=== PATIENT | male | born 1970 | race Two or more races ===

== ENCOUNTER 2021-05-28 20:06 | Emergency (ER) | payer MEDICAID, OTHER ==
[~2021-05-28] VITALS: Ht 185.4 cm; Wt 127.0 kg
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
--- NOTE | 2021-05-28 20:36 | NUR ---
POC BS 555; SAHIL CASTANO AWARE
--- NOTE | 2021-05-28 20:47 | NUR ---
INCLUSION SPECIAL EDUCATION TEACHER AT PT'S BEDSIDE
[2021-05-28 21:03] LABS: BASOPHILS % (AUTO) 0.3 % (0.0-2.0); EOSINOPHILS % (AUTO) 1.9 % (0.0-6.0); HEMATOCRIT 46 % (39-51); HEMOGLOBIN 15.8 g/dL (13.5-17.5); LYMPHOCYTES # (AUTO) 1.6 K/uL (0.8-4.8); LYMPHOCYTES % (AUTO) 18.3 % (20.0-44.0); MEAN CORPUSCULAR HGB CONC 35 g/dl (31.0-36.0); MEAN CORPUSCULAR VOLUME 93 fL (80-96); MONOCYTES # (AUTO) 0.8 K/uL (0.1-1.30); MONOCYTES % (AUTO) 9.2 % (2.0-12.0); NEUTROPHILS # (AUTO) 6.2 K/uL (1.8-8.9); NEUTROPHILS % (AUTO) 70.3 % (43.0-81.0); PLATELET COUNT (AUTO) 173 K/uL (150-450); RED BLOOD CELL COUNT(AUTO) 4.92 MIL/uL (4.5-6.0); WHITE BLOOD COUNT (AUTO) 8.8 K/uL (4.3-11.0)
--- NOTE | 2021-05-28 21:44 | NUR ---
PT TAKEN TO CT VIA MYES[facility]
[2021-05-28 21:59] LABS: ALANINE AMINOTRANSFERASE 43 U/L (12-78); ALBUMIN 2.8 g/dL (3.4-5.0); ALCOHOL, BLOOD < 3 mg/dL (0-0); ALKALINE PHOSPHATASE 176 U/L (46-116); BILIRUBIN,DIRECT 0.1 mg/dL (0.0-0.2); BILIRUBIN,TOTAL 0.3 mg/dL (0.2-1.0); CALCIUM, SERUM 8.2 mg/dL (8.5-10.1); CARBON DIOXIDE 24 mmol/L (21-32); CHLORIDE 99 mmol/L (98-107); CREATININE 1.3 mg/dL (0.6-1.3); POTASSIUM 4.3 mmol/L (3.5-5.1); SODIUM SERUM 133 mmol/L (136-145); TOTAL PROTEIN, SERUM 6.7 g/dL (6.4-8.2); UREA NITROGEN, BLOOD 22 mg/dL (7-18)
[2021-05-28 22:01] LABS: GLUCOSE 575 mg/dL (74-106)
--- NOTE | 2021-05-28 22:02 | NUR ---
PER LAB BS 575; LAW CASTANO AWARE
[2021-05-28] MEDS ORDERED: INSULIN REGULAR, HUMAN 100 UNIT/ML 10 ML VIAL SQ ONE (22:30)
[2021-05-28] MEDS ORDERED: METF-440 PO (22:34)
[2021-05-28 23:14] LABS: ASPARTATE AMINOTRANSFERASE 48 U/L (15-37)
--- NOTE | 2021-05-28 23:20 | NUR ---
S/P INSULIN 10 UNITS. POC BS 477. LAW AWARE
--- NOTE | 2021-05-28 23:44 | NUR ---
URINE COLLECTED AND SENT TO LAB
--- NOTE | 2021-05-29 00:10 | NUR ---
IV removed. Catheter intact and site benign. Pressure and 4x4 applied to site. No bleeding noted. Written and verbal after care instructions given. Patient verbalizes understanding of instruction.
--- NOTE | 2021-05-29 00:12 | NUR ---
CALLED [facility] PT'S DC AND DC INSTRUCTIONS. PT AWAITING FOR RIDE FOR DC
--- NOTE | 2021-05-29 00:50 | NUR ---
Patient discharged to home in stable condition WITH . PT ambulatory with a steady gait. RX GIVEN.
[2021-05-29 01:03] VITALS: BP 123/83
== END 2021-05-29 00:50 | disposition home or self-care (01) ==
LOC: EDBD 20:08 → EDSEX 20:08 → ER 20:08
DX: E11.65 Type 2 diabetes mellitus with hyperglycemia (principal); V99.XXXA Unspecified transport accident, initial encounter; Y93.84 Activity, sleeping; Y92.89 Other specified places as the place of occurrence of the external cause; Y99.8 Other external cause status
CPT/HCPCS: 36415; 70450-TC; 72125-TC; 80048-TC; 80076-TC; 82962-TC; 85025-TC; G0480